=== PATIENT | female | born 1955 | race Caucasian/White ===

== ENCOUNTER 2018-05-10 00:22 | Outpatient (CLI) | payer BC, SELFPAY ==
--- NOTE | 2018-05-10 09:46 | DI.US_ITS ---
SYMPTOM/DIAGNOSIS: ABD PAIN,RLQ R10.31, R10.9 ABDOMINAL AND PELVIC ULTRASOUND: ABDOMINAL ULTRASOUND: The aorta and IVC are unremarkable. The liver is unremarkable. The patient is status post cholecystectomy. The common bile duct is within normal limits at 0.4 cm. The pancreas, kidneys and spleen are unremarkable. No fluid is seen in the upper abdomen. IMPRESSION: Status post cholecystectomy, otherwise negative abdominal ultrasound. PELVIC ULTRASOUND: Pelvic ultrasound was performed. Transabdominal and transvaginal examination was performed. The uterus measures 7.6 cm in length by 3.4 cm AP by 4.6 cm transverse. The endometrial strip is within normal limits at 0.6 cm. It is avascular but somewhat heterogeneous. No discrete mass is seen. The right ovary measures 1.7 x 1.3 x 1.3 cm. The left ovary measures 1.6 x 0.8 x 1.6 cm. The ovaries are unremarkable. No ovarian mass, adnexal mass or free pelvic fluid seen. In the left pubic area, the area of palpable abnormality there is a superficial 0.7 cm avascular mass. The finding is nonspecific sonographically. IMPRESSION: 1. Mildly heterogeneous, but otherwise unremarkable, endometrial stripe. No discrete mass or blood flow seen. A follow up examination should be considered in 1-2 months for re-evaluation. 2. Nonspecific 0.7 cm superficial nodule in the left pubic area corresponding to a palpable abnormality. Please correlate with physical exam. Follow up as clinically appropriate.
== END 2018-05-10 00:42 ==
PROVIDERS: PCP Physician Assistant Medical; Visit Provider Specialist/Technologist Athletic Trainer
DX: R10.31 Right lower quadrant pain (principal); Z90.49 Acquired absence of other specified parts of digestive tract; R19.09 Other intra-abdominal and pelvic swelling, mass and lump
CPT/HCPCS: 76700; 76830; 76856

== ENCOUNTER 2018-06-12 10:13 | Day surgery (SDC) | payer BC, SELFPAY ==
[2018-06-12 10:31] VITALS: BP 121/78; PULSE 78; RESP 16; TEMP 37; O2SAT 95
[2018-06-12] MEDS: Lactated Ringers 1,000 ML 30 ML IV (10:56)
--- NOTE | 2018-06-12 11:50 | W.COLOREPORT ---
Date of service: 06/12/18 Time of Service: 11:50 Colonoscopy Report Date of procedure: 06/12/18 Pre-op diagnosis general: Colorectal cancer screening Post-op diagnosis procedure note: other (Normal colon to the cecum) Procedure: Colonoscopy to the cecum Surgeon: Bassam Herr Anesthesia proc note operative: MAC (Nancy Lamas CRNA; ASA 2 Mallampati class II) Estimated blood loss (mL): 0 Pathology: none sent Complications: None Disposition: same day Indications: 63-year-old female presenting for colorectal cancer screening by colonoscopy. She has been asymptomatic since her last colonoscopy has no family history of colorectal cancer. The colonoscopy procedure has been reviewed with her, and the risk of the procedure have been discussed. All her questions been answered to her satisfaction. Consent has been obtained to proceed with colonoscopy. Prep: Miralax/Dulcolax Procedure Start Time: 12:02 Procedure End Time: 12:18 Retraction Time: 10 Findings: In examining the colon from cecum to anus, no abnormalities were noted. Procedure Description: The patient was seen in the day surgery waiting area. Her identification was confirmed, and procedure check. She was then brought to the procedure room. Monitoring for telemetry, blood pressure, oxygen saturation, and end tidal CO2 monitoring were applied. An appropriate time out was performed to confirm, identification, allergies, medication, procedure, was performed. Sedation was titrated for affect by the POWER PRESS SUPERVISOR; Once adequate sedation was achieved, I performed a inspection of the external perineum, and a digitial rectal examination. No significant external abnormalities were noted. On digital rectal examination, there was no blood, no masses, good rectal tone. I advanced the colonoscope from the anus to the cecum under direct visualization. The cecum was identified by the ileal-cecal valve, and the appendiceal orifice. The scope was then withdrawn in circumferential manner from the cecum to the rectum. No abnormalites were noted in the colon. The scope was then withdrawn into the rectum, and retroflexed. No abnormalities were noted of the rectum or anorectal junction. The scope was then withdrawn, terminating the procedure. There were no complications during the procedure, and the patient tolerated the procedure well. She was returned to the day surgery recovery area in good condition. Plan: Will continue with routine screening for colorectal cancer according to current consensus guidelines, which is currently 10 years.
[2018-06-12 12:50] VITALS: BP 91/65; PULSE 72; RESP 16; TEMP 36.5; O2SAT 97
--- NOTE | 2018-06-12 17:44 | W.PM.DSUDISC ---
Discharge Plan Disposition Patient Disposition: HOME Condition: Good Discharge Details Reason For Visit: Colorectal cancer screening Attending Provider: Bassam Herr Primary Care Provider: Hi Escobar Home Meds and New Rx's Prescriptions: Continue triamcinolone acetonide 15 GM cream 15 gm Topical BID PRNRF: 0 lorazepam [Ativan] 0.5 MG tablet 0.5 mg PO PRN RF: 0 montelukast [Singulair] 10 MG tablet 10 mg PO DAILY RF: 0 albuterol sulfate [ProAir HFA] 8.5 GM HFA aerosol inhaler 2 puff Inhalation Q4H PRN PRNRF: 0 loratadine 10 MG tablet 10 mg PO DAILY RF: 0 bupropion HCl [Wellbutrin XL] 150 MG tablet extended release 24 hr 150 mg PO BID RF: 0 acetaminophen [Tylenol] 325 MG tablet 650 mg PO Q4H PRN PRNQty: 30 RF: 0 naproxen sodium [Aleve] 220 mg Capsule 220 mg PO DAILY PRNRF: 0 Discharge Instructions Instructions: Colonoscopy (DC) Stand Alone Forms: Colonoscopy Post Instructions, Amy Donnelly (DSU) Activity:: Activity as Tolerated Diet:: As Tolerated Discharge Orders Discharge Orders: Discharge Order (Routine); Ordered 06/12/18 Ordered By: Bassam Herr Discharge Data Discharge Date/Time-TO BE ENTERED AT DEPARTURE: 06/12/18 13:03 Discharge Comment: DISCHARGD HOME WITH [employer] VIA PRIVATE CAR DS: Diagnosis Discharge Diagnosis (1) Encounter for colorectal cancer screening: Start date: 06/12/18 Start time: 11:50 Status: Acute Asessment and Plan: Colonoscopy performed Colonoscopy Report Date of procedure: 06/12/18 Pre-op diagnosis general: Colorectal cancer screening Post-op diagnosis procedure note: other (Normal colon to the cecum) Procedure: Colonoscopy to the cecum Surgeon: Bassam Herr Anesthesia proc note operative: MAC (Nancy Lamas CRNA; ASA 2 Mallampati class II) Estimated blood loss (mL): 0 Pathology: none sent Complications: None Disposition: same day Indications: 63-year-old female presenting for colorectal cancer screening by colonoscopy. She has been asymptomatic since her last colonoscopy has no family history of colorectal cancer. The colonoscopy procedure has been reviewed with her, and the risk of the procedure have been discussed. All her questions been answered to her satisfaction. Consent has been obtained to proceed with colonoscopy. Prep: Miralax/Dulcolax Procedure Start Time: 12:02 Procedure End Time: 12:18 Retraction Time: 10 Findings: In examining the colon from cecum to anus, no abnormalities were noted. Procedure Description: The patient was seen in the day surgery waiting area. Her identification was confirmed, and procedure check. She was then brought to the procedure room. Monitoring for telemetry, blood pressure, oxygen saturation, and end tidal CO2 monitoring were applied. An appropriate time out was performed to confirm, identification, allergies, medication, procedure, was performed. Sedation was titrated for affect by the LIQUOR GRINDING MILL OPERATOR; Once adequate sedation was achieved, I performed a inspection of the external perineum, and a digitial rectal examination. No significant external abnormalities were noted. On digital rectal examination, there was no blood, no masses, good rectal tone. I advanced the colonoscope from the anus to the cecum under direct visualization. The cecum was identified by the ileal-cecal valve, and the appendiceal orifice. The scope was then withdrawn in circumferential manner from the cecum to the rectum. No abnormalites were noted in the colon. The scope was then withdrawn into the rectum, and retroflexed. No abnormalities were noted of the rectum or anorectal junction. The scope was then withdrawn, terminating the procedure. There were no complications during the procedure, and the patient tolerated the procedure well. She was returned to the day surgery recovery area in good condition. Plan: Will continue with routine screening for colorectal cancer according to current consensus guidelines, which is currently 10 years.
== END 2018-06-12 13:03 | disposition home or self-care (01) ==
PROVIDERS: PCP Physician Assistant Medical; Visit Provider Surgery
PROC: 0DJD8ZZ Inspection of Lower Intestinal Tract, Via Natural or Artificial Opening Endoscopic (ICD-10-PCS; CPT 45378; principal; 2018-06-12 11:30)
DX: Z12.11 Encounter for screening for malignant neoplasm of colon (principal)
CPT/HCPCS: 45378

== ENCOUNTER 2018-07-08 09:34 | Outpatient (REF) | payer BC, SELFPAY ==
[2018-07-08 21:35] LABS: ALT 39 U/L (12-78); AST 19 U/L (15-37); Alkaline Phosphatase 72 U/L (46-116); Anion Gap 6.6 mmol/L (3-11); BUN 25 mg/dL (7-18); Bilirubin, Total 0.4 mg/dL (0.2-1.0); CO2 28.4 mmol/L (21.0-32.0); Calcium 8.5 mg/dL (8.5-10.1); Chloride 103 mmol/L (98-107); Glucose 83 mg/dL (70-100); Potassium 4.5 mmol/L (3.5-5.1); Sodium 138 mmol/L (136-145)
[2018-07-08 21:50] LABS: Cholesterol 229 mg/dL (50-200); HDL Cholesterol 72 mg/dL (40-60); LDL CHOLESTEROL 138 mg/dL (<100); Triglyceride 88 mg/dL (30-150)
[2018-07-08 22:06] LABS: Hemoglobin A1C 5.5 % (4.5-6.2)
== END 2018-07-08 09:54 ==
LOC: NCHCN 09:34
PROVIDERS: PCP Physician Assistant Medical; Visit Provider Physician Assistant Medical
DX: Z00.00 Encounter for general adult medical examination without abnormal findings (principal); Z13.1 Encounter for screening for diabetes mellitus; Z13.220 Encounter for screening for lipoid disorders; Z13.228 Encounter for screening for other metabolic disorders
CPT/HCPCS: 80053; 80061; 83721; 83036

== ENCOUNTER 2019-09-03 10:24 | Outpatient (REF) | payer OTHER, SELFPAY ==
--- NOTE | 2019-09-03 09:45 | PAPFT_PTH ---
PATIENT: Rupali Cam LOC: [facility] U#:[id number] AGE/SX: 64/F ROOM: RE09/03/[address]: Aubrie Kothari NP : 1955 BED: DIS: 09/03/2019 SPEC #: [id number] RECD: 09/03/19 12:55 STATUS: ARSALAN REEryn #: [id number] BILL: 09/03/19 09:[address]: Aubrie Kothari NP DEPT: [facility] Cytology RECD BY: Cely Pedro ENTERED: 09/03/19 12:56 SP TYPE: PAPFT ROMY DR: Hi Escobar Tissues: 1 - CX/ENDOCX FOR PAP SMEARS Procedures: PAP THIN PREP/UVM Screening HPV DNA PROBE Comments: [id number]
== END 2019-09-03 10:44 ==
LOC: LBN 10:24
PROVIDERS: PCP Physician Assistant Medical; Visit Provider Nurse Practitioner Women's Health
DX: Z12.4 Encounter for screening for malignant neoplasm of cervix (principal); Z11.51 Encounter for screening for human papillomavirus (HPV)
CPT/HCPCS: 88142; 87624

== ENCOUNTER 2019-12-25 09:58 | Outpatient (REF) | payer OTHER, SELFPAY ==
[2019-12-25 19:11] LABS: Calculated LDL 117 mg/dL (<100); Cholesterol 207 mg/dL (<200); HDL Cholesterol 74 mg/dL (40-60); Triglyceride 81 mg/dL (<150)
[2019-12-25 19:52] LABS: Hemoglobin A1C 5.4 % (3.8-5.6)
== END 2019-12-25 10:18 ==
LOC: NCHCN 09:58
PROVIDERS: PCP Physician Assistant Medical; Visit Provider Nurse Practitioner Family
DX: Z00.00 Encounter for general adult medical examination without abnormal findings (principal); R10.32 Left lower quadrant pain; F32.9 Major depressive disorder, single episode, unspecified
CPT/HCPCS: 80061; 83036

== ENCOUNTER 2020-02-17 21:51 | Outpatient (REF) | payer OTHER, SELFPAY | END 2020-02-17 22:11 | LOC: NCHCN 21:51 | PROVIDERS: PCP Physician Assistant Medical; Visit Provider Physician Assistant Medical | DX: R35.0 Frequency of micturition (principal) | CPT/HCPCS: 87077; 87086; 87186 ==

== ENCOUNTER 2021-07-06 01:58 | Outpatient (CLI) | payer OTHER, SELFPAY ==
[2021-07-06] MEDS: Breeza Beverage 473 ML BTL 946 ML PO (10:39)
[2021-07-06 10:48] LABS: CREATININE 0.8 mg/dL (0.55-1.02)
--- NOTE | 2021-07-06 12:49 | DI.CT_ITS ---
Exam(s) CT ABDOMEN PELVIS W EXAM: CT ABDOMEN PELVIS W INDICATION: RLQ ABD PAIN R10.31. COMPARISON: CT ABD PELVIS WO CONTRAST from 03/09/2017 TECHNIQUE: FINDINGS: CT examination of the abdomen and pelvis was performed with a bolus infusion of 100 cc of Omnipaque 3 50. Images obtained through the lung bases are unremarkable. The liver is unremarkable in appearance. There is a prior cholecystectomy, bile ducts are CT normal. Pancreas appears normal. Spleen is unremarkable in appearance. Adrenals appear normal. The kidneys are unremarkable except for 2 small left renal cortical cysts with no evidence of hydrone phrosis, nephrolithiasis, or renal mass.. Urinary bladder unremarkable. Abdominal aorta is of normal diameter and no major vascular abnormality is seen. No abdominal wall hernia. No abdominal or pelvic adenopathy. MICROFILM TECHNICIAN structures appear intact. Appendix is normal. No evidence of diverticulitis or bowel obstruction. IMPRESSION: Negative CT examination of the abdomen and pelvis. RADIATION DOSE DELIVERED: 1,039.72mGy.cm Total DLP 1,039.72mGy.cm Total DLP 20.05mGy CTDIvol RADIATION OPTIMIZATION: All CT scans at this facility use at least one of these dose optimization te chniques: automated exposure control; mA and/or kV adjustment per patient size (includes targeted exa ms where dose is matched to clinical indication); or iterative reconstruction.
[2021-07-06] MEDS: Omnipaque 350 MG/ML 100 ML BTL IJ (12:52)
[2021-07-06] MEDS: Normal Saline Flush 10 ML SYR IVP (12:53)
== END 2021-07-06 02:18 ==
PROVIDERS: PCP Physician Assistant Medical; Visit Provider Physician Assistant Medical
DX: R10.31 Right lower quadrant pain (principal)
CPT/HCPCS: 74177; 82565; J3490

== ENCOUNTER 2021-07-27 15:47 | Outpatient (REF) | payer OTHER, SELFPAY ==
[2021-07-27 13:24] LABS: TSH (W/Ref FT4) 0.88 uIU/mL (0.36-3.74)
== END 2021-07-27 15:48 | disposition home or self-care (01) ==
LOC: NCHCN 15:47
PROVIDERS: PCP Physician Assistant Medical; Visit Provider Physician Assistant Medical
DX: F32.9 Major depressive disorder, single episode, unspecified (principal)
CPT/HCPCS: 84443

== ENCOUNTER 2023-02-01 01:27 | Outpatient (CLI) | payer MEDICARE, SELFPAY ==
--- NOTE | 2023-02-01 | DI.DEXA_ITS ---
Exam(s) XR DEXA BONE DENSITY W/WO CANDY EXAM: XR DEXA BONE DENSITY W/WO CANDY CLINICAL HISTORY: MENOPAUSAL Z78.0 [facility] CARE Z00.00 TECHNIQUE: HoloBranch2 Horizon C densitometer analysis of left hip, lumbar spine and right forearm. La teral survey image of the thoracic and lumbar spine. COMPARISON: DX DEXA BONE DENSITY WITH CANDY from 10/22/2014 FINDINGS: Lateral view of the thoracic and lumbar spine shows no evidence of compression fractures. Bone mineral density measurements of the lumbar spine correspond to a total T-score of -0.9, in the normal range. Bone mineral density measurements of the left hip correspond to a total T-score of -0.5. The femora l neck T-score is -1.5, in the osteopenic range. This is 6.8 percent decrease compared to 2015.. The right forearm bone mineral density measurements correspond to a T-score of the distal 3rd of -0. 6, in the normal range.. IMPRESSION: Normal bone mineral density of the lumbar spine and right forearm. Osteopenia of the hip.
== END 2023-02-01 01:47 ==
PROVIDERS: PCP Physician Assistant Medical; Visit Provider Physician Assistant Medical
DX: Z78.0 Asymptomatic menopausal state (principal); Z13.820 Encounter for screening for osteoporosis; M85.89 Other specified disorders of bone density and structure, multiple sites
CPT/HCPCS: 77080

== ENCOUNTER → 2024-03-12 01:03 | Outpatient (CLI) | payer MEDICARE, SELFPAY ==
--- NOTE | 2024-03-12 | DI.RAD_ITS ---
Exam(s) XR KNEE RT 3V AP,LAT,SCOT EXAM: XR KNEE RT 3V AP,LAT,SCOT CLINICAL HISTORY: Pain of rt knee, M25.561. TECHNIQUE: 2D digital imaging was performed. Three views. COMPARISON: No exams were available for comparison FINDINGS: BONES: No acute fracture is present. No bony destructive lesion is seen. Enthesophyte upper pole pa tella. JOINTS: The knee is normally aligned. No joint effusion is seen. Spurring at articular aspect of pa tella. Mild medial femoral tibial joint space narrowing. SOFT TISSUE: Normal. IMPRESSION: Mild degenerative changes. DATA REPOSITORY: RADIATION DOSE DELIVERED:
== END ==
PROVIDERS: PCP Physician Assistant Medical; Visit Provider Physician Assistant Medical
DX: M25.561 Pain in right knee (principal); M17.11 Unilateral primary osteoarthritis, right knee
CPT/HCPCS: 73562

== ENCOUNTER 2024-04-16 13:52 | Outpatient (REF) | payer MEDICARE, SELFPAY ==
--- NOTE | 2024-04-16 13:20 | ORMUBX_PTH ---
PATIENT: Rupali Cam LOC: [facility] U#:[id number] AGE/SX: 69/F ROOM: RE04/16/[address]: Ashley Jose : 1955 BED: DIS: 04/16/2024 SPEC #: [id number] RECD: 04/16/24 17:46 STATUS: ARSALAN REQ #: [id number] BILL: 04/16/24 13:[address]: Ashley Jose DEPT: Surgical Specimen RECD BY: Cely Pedro ENTERED: 04/16/24 17:47 SP TYPE: ORMUBX OT DR: Hi Escobar Tissues: 1 - MUCOSA, NOS Procedures: GROSS AND MICRO LEVEL 4 Comments: [id number]
== END 2024-04-16 13:53 | disposition home or self-care (01) ==
LOC: LBN 13:52
PROVIDERS: PCP Physician Assistant Medical; Visit Provider Registered Nurse Maternal Newborn
DX: K13.70 Unspecified lesions of oral mucosa (principal); B07.8 Other viral warts
CPT/HCPCS: 88305

== ENCOUNTER 2024-05-30 07:11 | Day surgery (SDC) | payer MEDICARE, SELFPAY ==
--- NOTE | 2024-05-29 19:44 | W.PREOPHP ---
Assessment and Plan Assessment and plan (1) Posterior subcapsular age-related cataract, right eye: Status: Acute Assessment and plan: Assessment: Visually significant cataract, right eye. Plan: Cataract extraction with intraocular lens implan, right eye. (2) Cortical age-related cataract, right eye: Status: Acute Assessment and plan: Assessment: Visually significant cataract, right eye. Plan: Cataract extraction with intraocular lens implan, right eye. (3) Nuclear age-related cataract, right eye: Status: Acute Assessment and plan: Assessment: Visually significant cataract, right eye. Plan: Cataract extraction with intraocular lens implan, right eye. (4) Nuclear age-related cataract, left eye: Status: Acute Assessment and plan: Assessment: Visit significant cataract of the left eye. Plan: Cataract extraction with lens implantation of the left eye following recovery from right eye cataract surgery. (5) Cortical age-related cataract, left eye: Status: Acute Assessment and plan: Assessment: Visit significant cataract of the left eye. Plan: Cataract extraction with lens implantation of the left eye following recovery from right eye cataract surgery (6) Posterior subcapsular age-related cataract of left eye: Status: Acute Assessment and plan: Assessment: Visit significant cataract of the left eye. Plan: Cataract extraction with lens implantation of the left eye following recovery from right eye cataract surgery History of Present Illness History of Present Illness Chief Complaint: Progressive decreased vision both eyes Narrative: The patient is a 69-year-old lady with complaints of progressive decreased vision in both eyes at both distance and near. She has a history of congenital nystagmus and epiretinal membrane of the right eye. She notes difficulty with increased blurred and cloudy vision. She has difficulty reading road signs and has difficulty with glare at night. Review of Systems All systems reviewed & are unremarkable except as noted in HPI and below PFSH All Active Problems Posterior subcapsular age-related cataract of left eye (Acute) Cortical age-related cataract, left eye (Acute) Nuclear age-related cataract, left eye (Acute) Posterior subcapsular age-related cataract, right eye (Acute) Cortical age-related cataract, right eye (Acute) Nuclear age-related cataract, right eye (Acute) Oral lesion (Acute) Encounter for colorectal cancer screening (Acute) Rash (Acute 08/04/15) Postmenopausal bleeding (Acute 10/06/15) amenorrhea since 58yo. 1w of vaginal bleeding 60yo 09/2015 EMBx neg. 07/2017 Repeat episode. EMBx with [facility] normal. Otitis externa (Acute 08/04/15) Depression (Acute 10/06/15) BMI 30.0-30.9,adult (Acute 10/06/15) Medical History Pain of right hip joint TMJ (dislocation of temporomandibular joint) Disorder of nasal sinus Mild intermittent asthma Cataract Major depression Visual disturbance Allergic rhinitis Cough Pain, joint, knee, right Pain in right hip Right lower quadrant abdominal pain Left lower quadrant abdominal pain Increased frequency of urination Constipation Obesity (BMI 30.0-34.9) TMJ (temporomandibular joint disorder) Urinary, incontinence, stress female Eczema Left groin pain Abdominal pain Asthma Depression Postmenopausal bleeding 09/2015. Nl EMBx. 07/2017 Rpt episode. Plan EMBx with [facility]. Fear of flying Surgical History Tonsillectomy and adenoidectomy Colonoscopy - MAC (06/12/18) 06/12/18 dr quezada, no abnormalities, repeat 10 years Cholecystectomy (09/21/17) Family History Mother TIA (transient ischemic attack) AAA (abdominal aortic aneurysm) Dementia Sister Hypothyroidism Social History Smoking/Tobacco Use Status: Former Tobacco Use Smoking risk assessment performed?: Yes Alcohol Intake: current Alcohol Intake frequency: a few times a month Alcohol type: wine Drug use: Never Substance use type: does not use Housing: house Do you feel safe at home: Yes Do you feel safe in your relationship?: Yes Female Reproductive History Menstrual Menopause type: natural History History 5 Para 2 Hx # Term Pregnancies Multiple births Hx # Pregnancies Ectopic pregnancies AB induced Hx Number of Living Children AB spontaneous Meds Allergies and Home Medications Allergies Allergy/AdvReac Type Severity Reaction Status Date / Time animal dander AdvReac Unknown Verified 05/30/24 07:39 SSRI AdvReac bruxism Uncoded 05/30/24 07:39 Home Medications ?Medication ?Instructions ?Recorded ?Confirmed ?Type Ativan 0.5 mg tablet (lorazepam) 0.5 mg PO BID PRN 08/21/17 05/30/24 History ProAir HFA 90 mcg/actuation 2 puff inhalation Q4H PRN PRN 08/21/17 05/30/24 History aerosol inhaler (albuterol sulfate) loratadine 10 mg tablet 10 mg PO DAILY 08/21/17 05/30/24 History acetaminophen 325 mg tablet 650 mg (2 x 325 mg) PO Q4H PRN PRN 09/21/17 05/30/24 Rx (Tylenol) #30 tabs betamethasone, augmented 0.05 % 1 applic topical DAILY PRN 03/17/24 05/30/24 History topical ointment (Diprolene (augmented)) montelukast 10 mg tablet 10 mg PO DAILY 03/17/24 05/30/24 History diphenhydramine HCl 25 mg PO HS 04/16/24 05/30/24 History Exam Resp Auscultation: clear to auscultation bilaterally Cardio Rate: regular rate Rhythm: regular rhythm
--- NOTE | 2024-05-30 05:56 | W.ANESPRE ---
General Info Date of Service Date Performed: 05/30/24 Height: 5 ft 5.5 in Weight: 85.6 kg Body Mass Index (BMI): 30.9 Surgical Procedure: Operation Date: 05/30/24 09:40 Proposed Procedure Side Surgeon p Cataract Extraction with IOL Implant Right Hector Cook MD Meds Allergies and Home Medications Allergies Allergy/AdvReac Type Severity Reaction Status Date / Time animal dander AdvReac Unknown Verified 05/30/24 07:39 SSRI AdvReac bruxism Uncoded 05/30/24 07:39 Home Medication ?Medication ?Instructions ?Recorded Ativan 0.5 mg tablet (lorazepam) 0.5 mg PO BID PRN 08/21/17 ProAir HFA 90 mcg/actuation 2 puff inhalation Q4H PRN PRN 08/21/17 aerosol inhaler (albuterol sulfate) loratadine 10 mg tablet 10 mg PO DAILY 08/21/17 acetaminophen 325 mg tablet 650 mg (2 x 325 mg) PO Q4H PRN PRN 09/21/17 (Tylenol) #30 tabs betamethasone, augmented 0.05 % 1 applic topical DAILY PRN 03/17/24 topical ointment (Diprolene (augmented)) montelukast 10 mg tablet 10 mg PO DAILY 03/17/24 diphenhydramine HCl 25 mg PO HS 04/16/24 PFSH Active Problems Active Problems: Problem Status Onset Code Posterior subcapsular age-related cataract, right eye Acute H25.041 Cortical age-related cataract, right eye Acute H25.011 Nuclear age-related cataract, right eye Acute H25.11 Oral lesion Acute K13.70 Encounter for colorectal cancer screening Acute Z12.11, Z12.12 Rash Acute 08/04/15 R21 Postmenopausal bleeding Acute 10/06/15 N95.0 Otitis externa Acute 08/04/15 H60.90 Depression Acute 10/06/15 F32.9 BMI 30.0-30.9,adult Acute 10/06/15 Z68.30 Medical History Medical History Pain of right hip joint TMJ (dislocation of temporomandibular joint) Disorder of nasal sinus Mild intermittent asthma Cataract Major depression Visual disturbance Allergic rhinitis Cough Pain, joint, knee, right Pain in right hip Right lower quadrant abdominal pain Left lower quadrant abdominal pain Increased frequency of urination Constipation Obesity (BMI 30.0-34.9) TMJ (temporomandibular joint disorder) Urinary, incontinence, stress female Eczema Left groin pain Abdominal pain Asthma Depression Postmenopausal bleeding 09/2015. Nl EMBx. 07/2017 Rpt episode. Plan EMBx with [facility]. Fear of flying Surgical History Surgical History Tonsillectomy and adenoidectomy Colonoscopy - MAC (06/12/18) 06/12/18 dr quezada, no abnormalities, repeat 10 years Cholecystectomy (09/21/17) Tobacco Smoking/Tobacco Use Status: Former Tobacco Use Alcohol Alcohol Intake: current Alcohol intake frequency: a few times a month Alcohol type: wine Substance Use Substance use: Never Substance use type: does not use Prental History History 5 Para 2 Hx # Term Pregnancies Multiple births Hx # Pregnancies Ectopic pregnancies AB induced Hx Number of Living Children AB spontaneous Vital Signs and Lab Results Vital Signs Most Recent Vital Signs in EMR: Temp Pulse Resp BP Pulse Ox 36.3 C L 77 17 115/79 95 05/30/24 07:20 05/30/24 07:20 05/30/24 07:20 05/30/24 07:20 05/30/24 07:20 Lab Results Blood Type / Crossmatch: No Data to Display Complete Blood Count: No Data to Display Complete Metabolic Panel: No Data to Display Liver Function Panel: No Data to Display Coagulation Panel: No Data to Display Cardiac Panel: No Data to Display Arterial Blood Gas: No Data to Display Venous Blood Gas: No Data to Display Pancreas Panel: No Data to Display Thyroid Panel: No Data to Display Infectious Disease: No Data to Display Blood Cultures: No Data to Display Toxicology Panel: No Data to Display Imaging and Studies Imaging and Studies Study information below may be from another EMR and interpreted by another provider. Please see original notes in EMR for more complete details. Pulmonary Function Summary: PULMONARY FUNCTION TEST DATE OF SERVICE: March 11, 2013 PRIMARY CARE PROVIDER: Peace Blankenship M.D. Spirometry shows no evidence of obstructive airway disease. No bronchodilator testing was carried out. Lung volumes show no evidence of restriction. Diffusion capacity minimally reduced with somewhat suboptimal patient effort. Airway resistance normal. Overall normal pulmonary function study. Anesthesia Assessment and Plan Anesthesia History Personal History: No History of Anesthesia Complications Family History: No Family History of Anesthesia Complications Exercise Tolerance Exercise Tolerance: Metabolic Equivalents>4 Cardiac & Pulmonary Exam Cardiac Exam: Normal S1/S2 Heart Sounds Pulmonary Exam: Clear Bilateral Breath Sounds Implantable Cardiac Device Does patient have a Pacemaker or an ICD?: No Airway Exam Known Difficult Airway: No Mallampati Class: 2 Mouth Opening: Normal (> 3cm) Thyromental Distance: Greater than 3 cm Neck Range of Motion: Full ROM Neck Circumference: Normal Teeth Condition: Normal Dentition ASA Classification ASA Score: ASA 2 Emergency Case?: No NPO Status NPO Status: NPO Clears >2 hours, Solids >8 hours Anesthesia Plan Resuscitation Status: Full Code Anesthesia Technique: MAC Anesthesia Airway Planned: Natural Airway Monitors Used: Standard Monitors Preoperative Comments:: Slight expiratory wheeze, Albuterol inhaler just prior to procedure
[2024-05-30 07:20] VITALS: BP 115/79; PULSE 77; RESP 17; TEMP 36.3; O2SAT 95
[2024-05-30] MEDS: Tropicam./Phenyleph. (1/2.5%) 5 ML BTL OD ×3 (07:46→07:54)
[2024-05-30 08:12] VITALS: BMI 30.9
[2024-05-30] MEDS: Tetracaine 0.5% 4 ML BTL OD (09:00)
[2024-05-30] MEDS: Povidone-Iodine Ophth 30 ML BTL (09:00)
[2024-05-30] MEDS: Duovisc Viscoelastic System EACH 1 EACH (09:05)
[2024-05-30] MEDS: Balanced Salt Soln.-PLUS 500 ML BAG OP (09:05)
[2024-05-30] MEDS: Lidocaine 1% Pres-Free 5 ML VIAL (09:06)
[2024-05-30] MEDS: Prednisolone 1%, Moxifloxacin 0.5%, Bromfenac 0.09% 5.6ML BTL OD (09:13)
[2024-05-30 09:24] VITALS: BP 120/72; PULSE 72; RESP 16; TEMP 36.3; O2SAT 97
--- NOTE | 2024-05-30 09:24 | W.PM.DSUDISC ---
Date of service: 05/30/24 Time of Service: 09:24 Discharge Plan Disposition Patient Disposition: Home Discharge Details Attending Provider: Hector Cook Primary Care Provider: Hi Escobar Home Meds and New Rx's Prescriptions: No Action diphenhydramine HCl [NightTime Sleep Aid (diphen)] 25 mg PO HS lorazepam [Ativan] 0.5 MG tablet 0.5 mg PO BID PRN albuterol sulfate [ProAir HFA] 8.5 GM HFA aerosol inhaler 2 puff Inhalation Q4H PRN PRN loratadine 10 MG tablet 10 mg PO DAILY betamethasone, augmented [Diprolene (augmented)] 0.05 % ointment 1 applic topical DAILY PRN montelukast 10 mg tablet 10 mg PO DAILY acetaminophen [Tylenol] 325 MG tablet 650 mg PO Q4H PRN PRNQty: 30 0RF Discharge Instructions Stand Alone Forms: DSU Post-Op Cataract, Amy Donnelly (DSU) Discharge Orders Discharge Orders: Discharge Order (Routine); Ordered 05/30/24 Ordered By: Hector Cook DS: Diagnosis Discharge Diagnosis (1) Posterior subcapsular age-related cataract, right eye: Status: Resolved (2) Cortical age-related cataract, right eye: Status: Resolved (3) Nuclear age-related cataract, right eye: Status: Resolved
--- NOTE | 2024-05-30 09:25 | ROE_ITS ---
Date of service: 05/30/24 Time of Service: 09:25 Operative Note Operative Note DATE OF PROCEDURE: 05/30/24 PRE-OP DIAGNOSIS: Nuclear/cortical/posterior subcapsular cataract, right eye POST-OP DIAGNOSIS: same PROCEDURE: Cataract extraction using phacoemulsification with intraocular lens implant, right eye SURGEON: Hector Cook ANESTHESIA TYPE: Local By Surgeon and MAC Refer to Anesthesia Record ESTIMATED BLOOD LOSS: 0 PATHOLOGY: none sent COMPLICATIONS: None Patient was transported to: same day Patient's condition: stable Implants: Benjy & Benjy Tecnis Eyhance DIB00 Indications: Progressive visual loss due to cataract, right eye Procedure Description: CATARACT SURGERY OPERATIVE REPORT PREOPERATIVE DIAGNOSIS: 1. Nuclear/cortical/posterior subcapsular cataract, right eye POSTOPERATIVE DIAGNOSIS: Same OPERATION: 1. Cataract extraction using phacoemulsification with posterior chamber intraocular lens implant, right eye. IOL: IOL Traffic Signal Repairer/Model: Benjy & Ebnjy Tecnis Eyhance DIB00 IOL Power: + 15.5 diopters IOL Serial Number: [id number] Optic Diameter: 6.0mm Haptic/Overall Diameter: 13.0mm PHACO INFO: Cruz [employer] Marketurion Vision System with OZil and Active Fluidics Cumulative Dispersed Energy (CDE): 2.35 seconds SURGEON: Hector Cook MD, JOSEPH ANESTHESIA: Monitored Anesthesia Care (MAC), with local sub-tenon's anesthetic infiltration COMPLICATIONS: None SPECIMENS: None INDICATIONS FOR PROCEDURE: The patient is a 69-year-old lady with history of diminished visual acuity in her right eye secondary to the development of nuclear/cortical/posterior subcapsular cataract. She is significantly symptomatic that she desires cataract surgery and attempt to improve and maximize her vision. She has a history of myopia and does a lot of near work without glasses. She has elected to have the myopia corrected, although the aim is for mini monovision with postoperative refractive target in the right eye of -0.50 to -0.75 diopters. See office notes for detailed information. PROCEDURE: The correct surgical eye was identified and marked as the right eye and the pupil was dilated in the preoperative area using mydriatics and cycloplegics. The dilated pupil size was 7.0 mm. Oral sedation was administered in the form of an Imprimis MKO Melt (midazolam 3mg/ketamine 25mg/ondansetron 2mg). The patient was brought to the operating room where cardiopulmonary monitoring was instituted and surgical time-out was performed, confirming the correct operative eye and IOL power. Topical anesthesia was administered and ophthalmic povidone-iodine 5% was instilled into the conjunctival fornices. The rohan-ocular area was prepped with Betadine 10% solution and draped in the usual sterile fashion for intraocular surgery, including an aperture drape. A Tegaderm transparent film dressing was cut in half and used to cover the lashes and lid margins. Care was taken to sequester the lashes and lid margins under the Tegaderm dressing. A lid speculum was placed between the lids of the operative eye and the Cruz LuxOR Revalia operating microscope was maneuvered into position. Nancy scissors were then used to make a conjunctival buttonhole approximately 6mm posterior to the limbus in the inferonasal quadrant. Blunt dissection was carried out to expose bare sclera, and a blunt-tipped sub-tenon?s anesthesia cannula was introduced and passed posteriorly along the globe where non- preserved plain lidocaine was injected into posterior sub-Tenon?s space. A sideport knife was used to make a paracentesis port. Intraocular phenylephrine/lidocaine was injected into the anterior chamber. The anterior chamber was filled with viscoelastic. A keratome knife was used to construct a 2-plane clear corneal tunnel extending 2.0mm into clear cornea. A flap was raised on the anterior capsule and capsulorhexis forceps were used to complete a continuous curvilinear capsulorhexis of 5.0 mm. Balanced salt solution was then used to perform cortical cleaving hydrodissection and nuclear hydrodelineation until the lens could be freely rotated within the capsular bag. The lens nucleus was then disassembled and removed within the capsular bag and iris plane using phacoemulsification. Residual cortical material was removed using the I/A handpiece. The posterior capsule was carefully polished to remove as much residual lens epithelial cells as safely possible. The capsular bag was then inflated and the anterior chamber deepened with cohesive viscoelastic. The lens implant described above was inserted into the capsular bag using the Benjy and Yoanna Simplicity pre- loaded injector. A Kuglen hook was used to dial the IOL into position. Residual viscoelastic was then removed first from posterior to the IOL, then from the anterior chamber using the I/A handpiece. The lens implant was noted to center nicely within the capsular bag. The incisions were stromally hydrated, and the anterior chamber was reformed using BSS. Then 0.5cc of moxifloxacin 1.0mg/ml were injected into the capsular bag and anterior chamber. The incisions were checked with a Weck spear and found to be secure. Several drops of ophthalmic povidone-iodine 5% were then applied to the eye followed by two drops ocombination steroid/NSAID/antibiotic solution. The drapes were removed and a clear plastic protective eye shield was placed over the eye. The patient was then returned to Same Day Surgery in stable condition.
--- NOTE | 2024-05-30 09:41 | W.ANESPOSTOP ---
Postoperative Evaluation Date, Time and Location Date Performed: 05/30/24 Time Performed: : Patient Location: Day Surgery Unit Vital Signs Most Recent Imported Vital Signs: Most Recent Vital Signs Temp Pulse Resp BP Pulse Ox 36.3 C L 72 16 120/72 97 05/30/24 09:24 05/30/24 09:24 05/30/24 09:24 05/30/24 09:24 05/30/24 09:24 Pain Score Most Recent Pain Score: Most Recent Pain Score Pain Level 0 05/30/24 09:24 Assessment Mental Status: Awake (Alert & Oriented to Patient Baseline) Airway and Respiratory Function: Patent airway with normal (patient baseline) respiratory exam Cardiovascular Function: Hemodynamically Stable Hydration Status: Adequately Hydrated Nausea & Vomiting: No Nausea or Vomiting Pain: Pt. Denies Any Pain Peripheral Nerve Block: Patient did not receive a nerve block
[2024-05-30 09:52] VITALS: BP 105/73; PULSE 75; RESP 16; TEMP 36; O2SAT 96
== END 2024-05-30 09:54 | disposition home or self-care (01) ==
PROVIDERS: PCP Physician Assistant Medical; Visit Provider Ophthalmology
PROC: (CPT 66984; principal; 2024-05-30 09:30)
DX: H25.041 Posterior subcapsular polar age-related cataract, right eye (principal); H25.011 Cortical age-related cataract, right eye; H25.11 Age-related nuclear cataract, right eye
CPT/HCPCS: 66984; 00123; V2632; J2003

== ENCOUNTER 2024-06-06 07:06 | Day surgery (SDC) | payer MEDICARE, SELFPAY ==
[2024-06-06 07:15] VITALS: BP 106/72; PULSE 73; RESP 18; TEMP 36.4; O2SAT 95
[2024-06-06] MEDS: Tropicam./Phenyleph. (1/2.5%) 5 ML BTL OS ×3 (07:29→07:49)
--- NOTE | 2024-06-06 07:44 | W.ANESPRE ---
General Info Date of Service Date Performed: 06/06/24 Height: 5 ft 5.5 in Weight: 82.9 kg Body Mass Index (BMI): 29.9 Surgical Procedure: Operation Date: 06/06/24 09:40 Proposed Procedure Side Surgeon p Cataract Extraction with IOL Implant Left Hector Cook MD Meds Allergies and Home Medications Allergies Allergy/AdvReac Type Severity Reaction Status Date / Time animal dander AdvReac Unknown Verified 06/04/24 15:14 SSRI AdvReac bruxism Uncoded 06/04/24 15:14 Home Medication ?Medication ?Instructions ?Recorded Ativan 0.5 mg tablet (lorazepam) 0.5 mg PO BID PRN 08/21/17 ProAir HFA 90 mcg/actuation 2 puff inhalation Q4H PRN PRN 08/21/17 aerosol inhaler (albuterol sulfate) loratadine 10 mg tablet 10 mg PO DAILY 08/21/17 acetaminophen 325 mg tablet 650 mg (2 x 325 mg) PO Q4H PRN PRN 09/21/17 (Tylenol) #30 tabs betamethasone, augmented 0.05 % 1 applic topical DAILY PRN 03/17/24 topical ointment (Diprolene (augmented)) montelukast 10 mg tablet 10 mg PO DAILY 03/17/24 diphenhydramine HCl 25 mg PO HS 04/16/24 Current Visit Medications: Current Medications Generic Name Dose Route Start Last Admin Trade Name Freq PRN Reason Stop Dose Admin Acetaminophen 1,000 mg 06/06/24 06:00 Acetaminophen 500 Mg Tab PO 07/06/24 05:59 Q4H PRN PRN Balanced Salt Solution 500 ml 06/06/24 06:00 Balanced Salt Soln.-Plus 500 Ml Bag OP 07/06/24 05:59 DIRECTED MARY Miscellaneous Medication 0 ml 06/06/24 06:00 Prednisolone 1%, Moxifloxacin 0.5%, Bromfenac 0.09% 5.6ml Btl OS 07/06/24 05:59 DIRECTED MARY Miscellaneous Medication 0 ml 06/06/24 06:00 Tropicam./Phenyleph. (1/2.5%) 5 Ml Btl OS 07/06/24 05:59 DIRECTED MARY Tetracaine HCl 0 ml 06/06/24 06:00 Tetracaine 0.5% 4 Ml Btl OS 07/06/24 05:59 DIRECTED [facility] Active Problems Active Problems: Problem Status Onset Code Posterior subcapsular age-related cataract of left eye Acute H25.042 Cortical age-related cataract, left eye Acute H25.012 Nuclear age-related cataract, left eye Acute H25.12 Posterior subcapsular age-related cataract, right eye Resolved H25.041 Cortical age-related cataract, right eye Resolved H25.011 Nuclear age-related cataract, right eye Resolved H25.11 Oral lesion Acute K13.70 Encounter for colorectal cancer screening Acute Z12.11, Z12.12 Rash Acute 08/04/15 R21 Postmenopausal bleeding Acute 10/06/15 N95.0 Otitis externa Acute 08/04/15 H60.90 Depression Acute 10/06/15 F32.9 BMI 30.0-30.9,adult Acute 10/06/15 Z68.30 Medical History Medical History Pain of right hip joint TMJ (dislocation of temporomandibular joint) Disorder of nasal sinus Mild intermittent asthma Cataract Major depression Visual disturbance Allergic rhinitis Cough Pain, joint, knee, right Pain in right hip Right lower quadrant abdominal pain Left lower quadrant abdominal pain Increased frequency of urination Constipation Obesity (BMI 30.0-34.9) TMJ (temporomandibular joint disorder) Urinary, incontinence, stress female Eczema Left groin pain Abdominal pain Asthma Depression Postmenopausal bleeding 09/2015. Nl EMBx. 07/2017 Rpt episode. Plan EMBx with [facility]. Fear of flying Surgical History Surgical History Tonsillectomy and adenoidectomy Colonoscopy - MAC (06/12/18) 06/12/18 dr quezada, no abnormalities, repeat 10 years Cholecystectomy (09/21/17) Tobacco Smoking/Tobacco Use Status: Former Tobacco Use Alcohol Alcohol Intake: current Alcohol intake frequency: a few times a month Alcohol type: wine Substance Use Substance use: Never Substance use type: does not use Prental History History 5 Para 2 Hx # Term Pregnancies Multiple births Hx # Pregnancies Ectopic pregnancies AB induced Hx Number of Living Children AB spontaneous Vital Signs and Lab Results Vital Signs Most Recent Vital Signs in EMR: Most Recent Vital Signs Temp Pulse Resp BP Pulse Ox 36.4 C L 73 18 106/72 95 06/06/24 07:15 06/06/24 07:15 06/06/24 07:15 06/06/24 07:15 06/06/24 07:15 Vital Signs Comment Vital Signs Comment:: Temp Pulse Resp BP Pulse Ox 36.4 C L 73 18 106/72 95 06/06/24 07:15 06/06/24 07:15 06/06/24 07:15 06/06/24 07:15 06/06/24 07:15 Lab Results Blood Type / Crossmatch: No Data to Display Complete Blood Count: No Data to Display Complete Metabolic Panel: No Data to Display Liver Function Panel: No Data to Display Coagulation Panel: No Data to Display Cardiac Panel: No Data to Display Arterial Blood Gas: No Data to Display Venous Blood Gas: No Data to Display Pancreas Panel: No Data to Display Thyroid Panel: No Data to Display Infectious Disease: No Data to Display Blood Cultures: No Data to Display Toxicology Panel: No Data to Display Imaging and Studies Imaging and Studies Study information below may be from another EMR and interpreted by another provider. Please see original notes in EMR for more complete details. Pulmonary Function Summary: PULMONARY FUNCTION TEST DATE OF SERVICE: March 11, 2013 PRIMARY CARE PROVIDER: Peace Blankenship M.D. Spirometry shows no evidence of obstructive airway disease. No bronchodilator testing was carried out. Lung volumes show no evidence of restriction. Diffusion capacity minimally reduced with somewhat suboptimal patient effort. Airway resistance normal. Overall normal pulmonary function study. Anesthesia Assessment and Plan Anesthesia History Personal History: No History of Anesthesia Complications Family History: No Family History of Anesthesia Complications Exercise Tolerance Exercise Tolerance: Metabolic Equivalents>4 Cardiac & Pulmonary Exam Cardiac Exam: Normal S1/S2 Heart Sounds Pulmonary Exam: Clear Bilateral Breath Sounds Implantable Cardiac Device Does patient have a Pacemaker or an ICD?: No Airway Exam Known Difficult Airway: No Mallampati Class: 2 Mouth Opening: Normal (> 3cm) Thyromental Distance: Greater than 3 cm Neck Range of Motion: Full ROM Neck Circumference: Normal Teeth Condition: Normal Dentition ASA Classification ASA Score: ASA 2 Emergency Case?: No NPO Status NPO Status: NPO Clears >2 hours, Solids >8 hours Anesthesia Plan Resuscitation Status: Full Code Anesthesia Technique: MAC Anesthesia Airway Planned: Natural Airway Monitors Used: Standard Monitors
[2024-06-06 08:42] VITALS: BMI 29.9
[2024-06-06] MEDS: Duovisc Viscoelastic System EACH 1 EACH (09:43)
[2024-06-06] MEDS: Lidocaine 1% Pres-Free 5 ML VIAL (09:44)
[2024-06-06] MEDS: Povidone-Iodine Ophth 30 ML BTL (09:46)
[2024-06-06] MEDS: Balanced Salt Soln.-PLUS 500 ML BAG OP (09:46)
[2024-06-06] MEDS: Prednisolone 1%, Moxifloxacin 0.5%, Bromfenac 0.09% 5.6ML BTL OS (09:46)
[2024-06-06] MEDS: Tetracaine 0.5% 4 ML BTL OS (09:47)
[2024-06-06 10:00] VITALS: BP 104/71; PULSE 71; RESP 18; TEMP 36.3; O2SAT 99
--- NOTE | 2024-06-06 10:08 | W.PM.DSUDISC ---
Date of service: 06/06/24 Time of Service: 10:08 Discharge Plan Disposition Patient Disposition: Home Discharge Details Attending Provider: Hector Cook Primary Care Provider: Hi Escobar Home Meds and New Rx's Prescriptions: No Action diphenhydramine HCl [NightTime Sleep Aid (diphen)] 25 mg PO HS lorazepam [Ativan] 0.5 MG tablet 0.5 mg PO BID PRN albuterol sulfate [ProAir HFA] 8.5 GM HFA aerosol inhaler 2 puff Inhalation Q4H PRN PRN loratadine 10 MG tablet 10 mg PO DAILY betamethasone, augmented [Diprolene (augmented)] 0.05 % ointment 1 applic topical DAILY PRN montelukast 10 mg tablet 10 mg PO DAILY acetaminophen [Tylenol] 325 MG tablet 650 mg PO Q4H PRN PRNQty: 30 0RF Discharge Instructions Stand Alone Forms: DSU Post-Op Cataract, Amy Donnelly (DSU) Discharge Orders Discharge Orders: Discharge Order (Routine); Ordered 06/06/24 Ordered By: Hector Cook DS: Diagnosis Discharge Diagnosis (1) Posterior subcapsular age-related cataract of left eye: Status: Resolved (2) Cortical age-related cataract, left eye: Status: Resolved (3) Nuclear age-related cataract, left eye: Status: Resolved
--- NOTE | 2024-06-06 10:09 | ROE_ITS ---
Date of service: 06/06/24 Time of Service: 10:09 Operative Note Operative Note DATE OF PROCEDURE: 06/06/24 PRE-OP DIAGNOSIS: Nuclear/cortical/posterior subcapsular cataract, left eye POST-OP DIAGNOSIS: same PROCEDURE: Cataract extraction using phacoemulsification with intraocular lens implant, left eye SURGEON: Hector Cook ANESTHESIA TYPE: Local By Surgeon and MAC Refer to Anesthesia Record PATHOLOGY: none sent COMPLICATIONS: None Patient was transported to: same day Patient's condition: stable Implants: Benjy and Benjy Tecnis Eyhance DIB00 Indications: Progressive decreased vision due to cataract, left eye Procedure Description: CATARACT SURGERY OPERATIVE REPORT PREOPERATIVE DIAGNOSIS: 1. Nuclear/cortical/posterior subcapsular cataract, left eye POSTOPERATIVE DIAGNOSIS: Same OPERATION: 1. Cataract extraction using phacoemulsification with posterior chamber intraocular lens implant, left eye. IOL: IOL Advertising Sales Agent/Model: Benjy & Benjy Tecnis Eyhance DIB00 IOL Power: + 15.5 diopters IOL Serial Number: [id number] Optic Diameter: 6.0 mm Haptic/Overall Diameter: 13.0 mm PHACO INFO: Cruz [employer] Labsurion Vision System with OZil and Active Fluidics Cumulative Dispersed Energy (CDE): 4.45 seconds SURGEON: Hector Cook MD, JOSEPH ANESTHESIA: Monitored A [facility] (MAC), with local sub-tenon's anesthetic infiltration COMPLICATIONS: None SPECIMENS: None INDICATIONS FOR PROCEDURE: The patient is a 69-year-old lady with history of diminished visual acuity in both eyes secondary to the development of bilateral cataracts. She has already undergone cataract surgery in the right eye and is doing well postoperatively. She now presents for cataract surgery in the left eye. See office notes for detailed information. PROCEDURE: The correct surgical eye was identified and marked as the left eye and the pupil was dilated in the preoperative area using mydriatics and cycloplegics. The dilated pupil size was [] mm. Oral sedation was administered in the form of an Imprimis MKO Melt (midazolam 3mg/ketamine 25mg/ondansetron 2mg). The patient was brought to the operating room where cardiopulmonary monitoring was instituted and surgical time-out was performed, confirming the correct operative eye and IOL power. Topical anesthesia was administered and ophthalmic povidone-iodine 5% was instilled into the conjunctival fornices. The rohan-ocular area was prepped with Betadine 10% solution and draped in the usual sterile fashion for intraocular surgery, including an aperture drape. A Tegaderm transparent film dressing was cut in half and used to cover the lashes and lid margins. Care was taken to sequester the lashes and lid margins under the Tegaderm dressing. A lid speculum was placed between the lids of the operative eye and the Cruz LuxOR Revalia operating microscope was maneuvered into position. Nancy scissors were then used to make a conjunctival buttonhole approximately 6mm posterior to the limbus in the inferonasal quadrant. Blunt dissection was carried out to expose bare sclera, and a blunt-tipped sub-tenon?s anesthesia cannula was introduced and passed posteriorly along the globe where non- preserved plain lidocaine was injected into posterior sub-Tenon?s space. A sideport knife was used to make a paracentesis port. Intraocular phenylephrine/lidocaine was injected into the anterior chamber.. The anterior chamber was filled with viscoelastic. A keratome knife was used to construct a 2-plane near-clear corneal tunnel extending 2.0mm into clear cornea. A flap was raised on the anterior capsule and capsulorhexis forceps were used to complete a continuous curvilinear capsulorhexis of 5.0 mm. Balanced salt solution was then used to perform cortical cleaving hydrodissection and nuclear hydrodelineation until the lens could be freely rotated within the capsular bag. The lens nucleus was then disassembled and removed within the capsular bag and iris plane using phacoemulsification. Residual cortical material was removed using the irrigation/aspiration handpiece. The posterior capsule was carefully polished to remove as much residual lens epithelial cells as safely possible. The capsular bag was then inflated and the anterior chamber deepened with viscoelastic. The lens implant described above was inserted into the capsular bag using the Benjy and Benjy Simplicity pre-loaded injector. A Kuglen hook was used to dial the IOL into position. Residual viscoelastic was then removed first from posterior to the IOL, then from the anterior chamber using the I/A handpiece. The lens implant was noted to center nicely within the capsular bag. The incisions were stromally hydrated, and the anterior chamber was reformed using BSS. Then 0.5cc of moxifloxacin 1.0mg/ml were injected into the capsular bag and anterior chamber. The incisions were checked with a Weck spear and found to be secure. Several drops of ophthalmic povidone-iodine 5% were then applied to the eye followed by two drops of Imprimis combination prednisolone/moxifloxacin/nepafenac solution. The drapes were removed and a clear plastic protective eye shield was placed over the eye. The patient was then returned to Same Day Surgery in stable condition.
--- NOTE | 2024-06-06 10:25 | W.ANESPOSTOP ---
Postoperative Evaluation Date, Time and Location Date Performed: 06/06/24 Time Performed: 10:21 Patient Location: Day Surgery Unit Vital Signs Most Recent Imported Vital Signs: Most Recent Vital Signs Temp Pulse Resp BP Pulse Ox 36.3 C L 71 18 104/71 99 06/06/24 10:00 06/06/24 10:00 06/06/24 10:00 06/06/24 10:00 06/06/24 10:00 Pain Score Most Recent Pain Score: Most Recent Pain Score Pain Level 0 06/06/24 10:00 Assessment Mental Status: Awake (Alert & Oriented to Patient Baseline) Airway and Respiratory Function: Patent airway with normal (patient baseline) respiratory exam Cardiovascular Function: Hemodynamically Stable Hydration Status: Adequately Hydrated Nausea & Vomiting: No Nausea or Vomiting Pain: Pt. Denies Any Pain Peripheral Nerve Block: Other (Local by Dr. Cook)
[2024-06-06 10:27] VITALS: BP 110/64; PULSE 75; RESP 18; TEMP 36.3; O2SAT 95
== END 2024-06-06 10:30 | disposition home or self-care (01) ==
LOC: SUR 07:07
PROVIDERS: PCP Physician Assistant Medical; Visit Provider Ophthalmology
PROC: (CPT 66984; principal; 2024-06-06 09:30)
DX: H25.042 Posterior subcapsular polar age-related cataract, left eye (principal); H25.012 Cortical age-related cataract, left eye; H25.12 Age-related nuclear cataract, left eye; Z98.41 Cataract extraction status, right eye
CPT/HCPCS: 66984; 00123; V2632; J2003

== ENCOUNTER 2024-11-07 01:02 | Outpatient (CLI) | payer MEDICARE, SELFPAY ==
[2024-11-07 09:34] LABS: ALT 52 U/L (14-59); AST 37 U/L (15-37); Albumin 3.6 g/dL (3.4-5.0); Alkaline Phosphatase 70 U/L (46-116); Anion Gap 8.5 mmol/L (3-11); BUN 19 mg/dL (7-18); Bilirubin, Total 0.8 mg/dL (0.2-1.0); CO2 27.5 mmol/L (21.0-32.0); Calcium 8.6 mg/dL (8.5-10.1); Chloride 107 mmol/L (98-107); Estimated GFR 61.75 (mL/min/1.73m2); Glucose 80 mg/dL (74-106); Potassium 4.1 mmol/L (3.5-5.1); Sodium 143 mmol/L (136-145); Total Protein 6.5 g/dL (6.4-8.2)
== END 2024-11-07 01:03 | disposition home or self-care (01) ==
LOC: LBO 01:02
PROVIDERS: PCP Physician Assistant Medical; Visit Provider Physician Assistant Medical
DX: Z00.00 Encounter for general adult medical examination without abnormal findings (principal)
CPT/HCPCS: 36415; 80053; 80061; 83036

== ENCOUNTER 2025-02-19 01:18 | Outpatient (CLI) | payer MEDICARE, SELFPAY ==
--- NOTE | 2025-02-19 | DI.DEXA_ITS ---
Exam(s) XR DEXA BONE DENSITY W/WO CANDY EXAM: XR DEXA BONE DENSITY W/WO CANDY CLINICAL HISTORY: Osteoporosis screening Z78.0 asymptomatic [place] TECHNIQUE: HoloBarkib[place] C densitometer analysis of left hip, lumbar spine and right forearm. Lateral survey image of the thoracic and lumbar spine. COMPARISON: DX DEXA BONE DENSITY WITH CANDY from 10/22/2014 CR XR DEXA BONE DENSITY W/WO CANDY from 02/01/2023 FINDINGS: Lateral view of the thoracic and lumbar spine shows no evidence of compression fractures. Bone mineral density measurements of the lumbar spine correspond to a total T- score of -0.7, in the normal range. This represents a 3.2 percent increase compared to 2022 and no change from 2014. Bone mineral density measurements of the left hip correspond to a total T-score of -0.7. This represents a 2.6 percent decrease from 10/20/2019 0.1 percent decrease from 2014.. The femoral neck T-score is -0.3, in the normal range. Theright forearm bone mineral density measurements correspond to a T-score of the distal 3rd of -0.3, in the normal range. This represents se 2.6 percent increase from 2022. The opposite forearm was analyzed in 2014 which showed a T- score of -0.2. IMPRESSION: Normal bone mineral density.
== END 2025-02-19 01:38 ==
LOC: DI 01:18
PROVIDERS: PCP Physician Assistant Medical; Visit Provider Physician Assistant Medical
DX: Z13.820 Encounter for screening for osteoporosis (principal); Z78.0 Asymptomatic menopausal state
CPT/HCPCS: 77080

== ENCOUNTER 2025-06-12 13:37 | Outpatient (CLI) | payer MEDICARE, SELFPAY ==
[2025-06-12 12:20] LABS: Hemoglobin A1C 5.6 % (<5.7)
== END 2025-06-12 13:38 | disposition home or self-care (01) ==
LOC: LBO 13:38
PROVIDERS: PCP Physician Assistant Medical; Visit Provider Physician Assistant Medical
DX: Z13.1 Encounter for screening for diabetes mellitus (principal); Z13.220 Encounter for screening for lipoid disorders
CPT/HCPCS: 36415; 80061; 83036